=== PATIENT | male | born 1960 | race Caucasian/White ===

== ENCOUNTER 2016-12-15 09:09 | Inpatient (IN) | payer MEDICARE, OTHER ==
--- NOTE | ~2016-12-15 | EKG ---
PATIENT: REINA QUIÑONES UNIT #: [id number] Ventricular Rate: 96 BPM Atrial Rate: 96 BPM P-R Interval: 124 ms QRS Duration: 88 ms Q-T Interval: 314 ms QTC Calculation(Bezet): 396 ms P Rutherford: 5 degrees Calculated R Rutherford: -33 degrees Calculated T Rutherford: 46 degrees Diagnosis Line: Normal sinus rhythm Diagnosis Line: Left axis deviation Diagnosis Line: Abnormal ECG Diagnosis Line: When compared with ECG of 30-MAY-2016 06:58, Diagnosis Line: No significant change was found Diagnosis Line: Confirmed by RAJINDER WITT MD ([id number]) on Diagnosis Line: 12/15/2016 11:28:39 AM INTERPRETING MD: EDUAR ARANDA
--- NOTE | ~2016-12-15 | OR ---
Unit #: [id number] #: [id number] Patient: REINA QUIÑONES [id number] [address] [place], [place] [address] [id number] MR#: [id number] NAME: REINA QUIÑONES ROOM: 472 Date of Procedure: 12/15/2016 Admission Date: 12/15/2016 Surgeon: Augusto Morris M.D. : 1960 Attending Physician: Augusto Morris M.D. Primary Care Physician: James Mustafa M.D. 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 PROCEDURE PERFORMED Left above-knee amputation. ASSISTANTS Lissette Hood and Jed Jacome. ANESTHESIA General. ESTIMATED BLOOD LOSS About 400 to 500 mL. INDICATIONS FOR PROCEDURE This is a 56-year-old gentleman with severe rheumatoid arthritis. He has had infected total knee that was removed He continues to have persistent swelling and infection in the knee. He is brought to the operating room today for left above knee amputation. DESCRIPTION OF PROCEDURE The patient was brought to the operating room. He was already on IV antibiotics, vancomycin. He was then brought back to the operating room and given a general anesthetic. No tourniquet was used. The leg was prepped and draped. We then made a fishmouth incision and marked out on the left thigh. The patient then had the skin incision made anteriorly. After the skin incision was made, hemostasis was obtained with the cautery unit. Dissection was carried through the muscle group on the medial and lateral side with the cautery unit. We then exposed the nerve on the lateral side, retracted it distally and cut it with a fresh blade and dissection was carried out around the medial side down to the bone as well. We then made the posterior incision. Subcutaneous was cauterized once again and the dissection was carried out sharply with the cautery unit. We identified the popliteal artery and vein and these were clamped and tied with 0 silk. After this was completed, the patient then had the amputation completed. The bone had been cut with an oscillating saw. The specimen was removed and sent to pathology. Edges of the bone were smoothed with a file. The wound was irrigated. Any further bleeding was Unit #: [id number] #: [id number] Patient: REINA QUIÑONES stopped with either cautery or ties and then the wound was closed bringing the posterior fascia up to the anterior fascia and sewing this with 0 Vicryl interrupted sutures. The subcutaneous was closed with 0 and 2-0 Vicryl and apollo in the skin. We did use a [place] drain to drain the wound. Sterile dressing was applied with fluffs and then an Wilberto wrap and his general anesthetic was reversed. Dictated by... Kary Schroeder/warren TD: 12/16/2016 07:37 JOB #: [id number] OPERATIVE REPORT X Augusto Morris MD X PROCEDURE OPERATIVE NOTE
--- NOTE | ~2016-12-15 | DS ---
Unit #: [id number] #: [id number] Patient: REINA SILVA [id number] [address] [address] [id number] MR#: [id number] NAME: REINA SILVA ROOM: 472 Age: 56 Sex: M Admission Date: 12/15/2016 : 1960 Discharge Date: Attending Physician: Augusto Morris M.D. Primary Care Physician: James Mustafa M.D. DISCHARGE SUMMARY ADMITTING DIAGNOSIS Left total knee infection. DISCHARGE DIAGNOSIS Left total knee infection. HOSPITAL COURSE On 12/15/2016, Mr. Silva underwent a left isvom-zlw-piqe amputation. He tolerated the procedure well. He was transported to the 4th floor, where he underwent physical therapy, medical management, and anticoagulation therapy. He is doing well and is ready to be discharged. DISPOSITION Stable at discharge. Discharged to [facility]. MEDICATIONS ON DISCHARGE Include aspirin 325 mg p.o. daily, Percocet 10/325 one tablet p.o. q.4 hours p.r.n. for pain, Neurontin 300 mg p.o. t.i.d., and vancomycin IV dose per pharmacy x4 weeks. FOLLOWUP AND INSTRUCTIONS Mr. Silva is going to be discharged to rehab. The patient is on aspirin for DVT prophylaxis. The patient has a dressing blister above the incision, this appears to be noninfectious and Dr. Morris has reviewed the patient's incision prior to discharge. The patient will need physical therapy to work on transfers. Followup appointment with Dr. Morris should be in 4 to 6 weeks. Please call our office for that appointment date and time. The patient is on IV vancomycin for 4 weeks dose per pharmacy. Please call our office for a followup appointment date and time. Dictated by... Michelle VillavicencioC. for Augusto Morris M.D. KIKA/warren TD: 12/21/2016 03:41 JOB #: [id number] Unit #: [id number] #: [id number] Patient: REINA SILVA DISCHARGE SUMMARY Page 1 of 1 X Fanny Sherman DISCHARGE SUMMARY
[~2016-12-15 09:09] MED LIST: ALEVE220 M1 PO; BACTRIM 400-801 TA1 PO; CUBICIN IV; DOCUSATE SODIU100 MG PO; FAMOTIDINE PO; FAMOTIDINE10 MG PO; HYDROCODON-ACE1 EAC5 PO; IRON325 ( 652 PO; LEVAQUIN750 M1 PO; LISINOPRIL20 MG PO; LORTAB 7.51 TAB PO; LOVENOX40 MG/0.4 SUBQ; MAXZIDE PO; METAMUCIL1 PKT PO; METAMUCIL660 GM; MILLIPRED DP5 M1 PO; MORPHINE SU4 MG/1 ML IV; MORPHINE SULFAT15 M3 PO; MYCOSTATIN POWD15 GM EXT; NAPROSYN500 MG PO; NYSTATIN15 GM OINT EXT; OXYCODONE HCL5 MG PO; PERCOCET 5-3251 TAB PO; PERCOCET 7.5/321 TAB PO; PERCOCET10 PO; PHENERGAN12.5 MG/0. IV; PREDNISOLO15 MG/5 ML PO; PREDNISOLONE5 MG PO; PREDNISONE5 M1 PO; TRIAMTERENE-HCT1 TA6 PO; VANCOMYCIN H1 G/VIAL IV; VANCOMYCIN1.25 GM/25 IV; VIBRAMYCIN100 M1 PO; ZESTRIL40 MG PO; ZOFRAN 4 MG4 MG/2 ML IV
[2016-12-15 10:07] LABS: BASOPHIL% 0.5 % (0-2.5); EOSINOPHIL# 0.3 X10e3 (0-0.7); EOSINOPHIL% 2.8 % (0.0-7.0); HEMATOCRIT 32.3 % (38.0-50.0); HEMOGLOBIN 10.4 gm/dL (13.0-16.0); LYMPHOCYTE% 20.2 % (17.0-45.0); MEAN CELL VOLUME 81.9 FL (83-96); MEAN CORPUSCULAR HEMOGLOBIN 26.5 PG (28-34); MEAN CORPUSCULAR HGB CONC 32.3 g/dL (30-36); MONOCYTE# 0.7 X10e3 (0-1.0); MONOCYTE% 6.8 % (3.0-12.0); NEUTROPHIL% 69.7 % (40-75); PLATELET COUNT 249 X10e3 (140-420); RED BLOOD COUNT 3.94 X10e (3.90-5.60)
[2016-12-15 10:10] LABS: DIFF IND NO
[2016-12-15 13:04] LABS: HEMATOCRIT 28.6 % (38.0-50.0); HEMOGLOBIN 9.1 gm/dL (13.0-16.0)
[2016-12-16 04:06] LABS: BASOPHIL% 0.5 % (0-2.5); EOSINOPHIL# 0.1 X10e3 (0-0.7); EOSINOPHIL% 1.6 % (0.0-7.0); HEMATOCRIT 23.2 % (38.0-50.0); HEMOGLOBIN 7.5 gm/dL (13.0-16.0); LYMPHOCYTE# 1.9 X10e3 (1.0-3.5); LYMPHOCYTE% 21.4 % (17.0-45.0); MEAN CELL VOLUME 82.5 FL (83-96); MEAN CORPUSCULAR HEMOGLOBIN 26.7 PG (28-34); MEAN CORPUSCULAR HGB CONC 32.4 g/dL (30-36); MEAN PLATELET VOLUME 8.1 FL (6.5-11.5); MONOCYTE# 0.7 X10e3 (0-1.0); MONOCYTE% 7.2 % (3.0-12.0); NEUTROPHIL# 6.3 X10e3 (1.5-7.1); NEUTROPHIL% 69.3 % (40-75); PLATELET COUNT 200 X10e3 (140-420); RED BLOOD COUNT 2.81 X10e (3.90-5.60); WHITE BLOOD COUNT 9.1 X10e3 (4.0-10.5)
[2016-12-16 04:07] LABS: DIFF IND YES
[2016-12-16 04:26] LABS: HYPOCHROMIA SL; PLATELET ESTIMATE DECREASED (NORMAL); SMUDGE CELLS 2 /100
[2016-12-17 05:31] LABS: HEMOGLOBIN 8.1 gm/dL (13.0-16.0)
[2016-12-18 04:24] LABS: BLOOD UREA NITROGEN 16 mg/dL (9-23); CREATININE SERUM 0.7 mg/dL (0.6-1.4); GLOM FILT RATE Estimated ABOVE60 mL/min (>60)
[2016-12-19 04:04] LABS: BASOPHIL% 0.5 % (0-2.5); EOSINOPHIL# 0.3 X10e3 (0-0.7); EOSINOPHIL% 4.4 % (0.0-7.0); HEMATOCRIT 21.4 % (38.0-50.0); LYMPHOCYTE# 1.8 X10e3 (1.0-3.5); LYMPHOCYTE% 22.4 % (17.0-45.0); MEAN CELL VOLUME 82.5 FL (83-96); MEAN CORPUSCULAR HEMOGLOBIN 26.4 PG (28-34); MEAN PLATELET VOLUME 8.4 FL (6.5-11.5); MONOCYTE# 0.7 X10e3 (0-1.0); MONOCYTE% 8.9 % (3.0-12.0); NEUTROPHIL% 63.8 % (40-75); PLATELET COUNT 197 X10e3 (140-420); RED BLOOD COUNT 2.59 X10e (3.90-5.60); RED CELL DISTRIBUTION WIDTH 15.4 % (11.0-15.5); WHITE BLOOD COUNT 7.9 X10e3 (4.0-10.5)
[2016-12-19 04:10] LABS: DIFF IND YES; HEMOGLOBIN 6.9 gm/dL (13.0-16.0)
[2016-12-19 04:49] LABS: HYPOCHROMIA MOD; MICROCYTOSIS MOD; PLATELET ESTIMATE NORMAL (NORMAL); POLYCHROMASIA SL; ROULEAUX SLIGHT
[2016-12-20 03:30] LABS: BASOPHIL# 0.1 X10e3 (0-0.3); BASOPHIL% 0.8 % (0-2.5); EOSINOPHIL# 0.4 X10e3 (0-0.7); EOSINOPHIL% 6.4 % (0.0-7.0); HEMATOCRIT 29.2 % (38.0-50.0); LYMPHOCYTE# 1.5 X10e3 (1.0-3.5); LYMPHOCYTE% 23.5 % (17.0-45.0); MEAN CELL VOLUME 84.6 FL (83-96); MEAN CORPUSCULAR HEMOGLOBIN 27.5 PG (28-34); MEAN CORPUSCULAR HGB CONC 32.6 g/dL (30-36); MEAN PLATELET VOLUME 8.7 FL (6.5-11.5); MONOCYTE# 0.6 X10e3 (0-1.0); MONOCYTE% 9.1 % (3.0-12.0); NEUTROPHIL# 3.8 X10e3 (1.5-7.1); NEUTROPHIL% 60.2 % (40-75); PLATELET COUNT 200 X10e3 (140-420); RED BLOOD COUNT 3.45 X10e (3.90-5.60); RED CELL DISTRIBUTION WIDTH 14.8 % (11.0-15.5); WHITE BLOOD COUNT 6.2 X10e3 (4.0-10.5)
[2016-12-20 03:32] LABS: DIFF IND NO; HEMOGLOBIN 9.5 gm/dL (13.0-16.0)
[2016-12-21 13:03] LABS: BLOOD UREA NITROGEN 16 mg/dL (9-23); CREATININE SERUM 0.6 mg/dL (0.6-1.4); GLOM FILT RATE Estimated ABOVE60 mL/min (>60)
[2016-12-22 04:13] LABS: BLOOD UREA NITROGEN 14 mg/dL (9-23); CREATININE SERUM 0.4 mg/dL (0.6-1.4); GLOM FILT RATE Estimated ABOVE60 mL/min (>60)
== END 2016-12-22 09:35 | DRG 858 ==
LOC: CSUR 09:09 → CPACUOF 10:38 → C4C 13:20
PROVIDERS: Orthopaedic Surgery
PROC: 0Y6D0Z3 Detachment at Left Upper Leg, Low, Open Approach (ICD-10-PCS; principal; 2016-12-15 11:00)
DX: T81.4XXA Infection following a procedure, initial encounter (principal); B95.62 Methicillin resistant Staphylococcus aureus infection as the cause of diseases classified elsewhere; K21.9 Gastro-esophageal reflux disease without esophagitis; M06.9 Rheumatoid arthritis, unspecified; Z96.621 Presence of right artificial elbow joint
CPT/HCPCS: 80202; 82565; 84520; 85014; 85018; 85025; 86850; 86900; 86901; 86923; 87070; 87075; 87077; 87186; 87205; 88307; 93005; 94760; 94761; 97110; 97116; 97163; 97167; 97530; G8978-GP; G8979-GP; G8987-GO; G8988-GO; J0131; J0690; J1170; J1720; J2250; J2270; J2370; J2550; J3010; J3370; P9016

== ENCOUNTER → 2017-02-17 | Outpatient (CLI) | payer MEDICARE, OTHER ==
[2017-02-17 16:04] LABS: BODY FLUID APPEARANCE TURBID; BODY FLUID SOURCE SYNOVIAL
== END | disposition home or self-care (01) ==
LOC: CLAB 15:08
PROVIDERS: Orthopaedic Surgery
DX: M25.461 Effusion, right knee (principal)
CPT/HCPCS: 87070; 87077; 87186; 87205; 89051